=== PATIENT | female | born 1950 | race Caucasian/White ===

== ENCOUNTER 2023-12-25 11:47 | Inpatient (IN) | payer OTHER, BC ==
[~2023-12-25] VITALS: Ht 167.6 cm; Wt 86.6 kg
[2023-12-25 12:05] VITALS: BP 172/78; PULSE 69; RESP 15; TEMP 98.1; O2SAT 93
[2023-12-25 12:47] LABS: BASOPHILS % (AUTO) 0.1 % (0.0-2.0); EOSINOPHILS # (AUTO) 0.2 K/uL (0-0.4); EOSINOPHILS % (AUTO) 1.6 % (0.0-4.0); HEMATOCRIT 41.4 % (36-48); HEMOGLOBIN 14.1 g/dL (12.0-16.0); LYMPHOCYTES # (AUTO) 2.2 K/uL (2.5-16.5); MEAN CORPUSCULAR HEMOGLOBIN 30 pg (27-31); MEAN CORPUSCULAR HGB CONC 34 g/dL (33-37); MEAN CORPUSCULAR VOLUME 87.7 fL (80-94); MONOCYTES # (AUTO) 0.8 K/uL (0.8-1.0); MONOCYTES % (AUTO) 6.9 % (1.7-9.3); NEUTROPHILS # (AUTO) 8.5 K/uL (1.8-7.7); NEUTROPHILS % (AUTO) 72.4 % (42.2-75.2); PLATELET COUNT (AUTO) 356 K/uL (140-450); RED BLOOD CELL COUNT(AUTO) 4.72 MIL/uL (4.20-5.40); RED CELL DISTRIBUTION WIDTH 13.9 % (11.6-13.7); WHITE BLOOD COUNT (AUTO) 11.7 K/uL (4.8-10.8)
[2023-12-25] MEDS ORDERED: cefTRIAXone 1,000 MG VIAL ONE (13:10)
[2023-12-25 13:13] LABS: ALANINE AMINOTRANSFERASE 10 U/L (12-78); ALBUMIN 3.5 g/dL (3.4-5.0); ALKALINE PHOSPHATASE 77 U/L (50-136); ASPARTATE AMINOTRANSFERASE 13 U/L (15-37); BILIRUBIN,DIRECT 0.1 mg/dL (0.0-0.3); FLU A ANTIGEN negative (NEGATIVE); FLU B ANTIGEN NEGATIVE (NEGATIVE); TOTAL BILIRUBIN 0.6 mg/dL (0.0-1.0); TOTAL PROTEIN, SERUM 7.8 g/dL (6.4-8.2)
[2023-12-25 13:14] LABS: ANION GAP 11.2 (8-16); CALCIUM 9.3 mg/dL (8.5-10.1); CARBON DIOXIDE 30.3 mmol/L (21-32); CHLORIDE 102 mmol/L (98-107); CREATININE 0.7 mg/dL (0.6-1.3); GLUCOSE 179 mg/dL (74-106); POTASSIUM 3.5 mmol/L (3.5-5.1); SODIUM SERUM 140 mmol/L (136-145); UREA NITROGEN, BLOOD 18 mg/dL (7-18)
[2023-12-25] MEDS ORDERED: AZITHROMYCIN 500 MG INJ VIAL IV ONE (13:45)
[2023-12-25] MEDS: AZITHROMYCIN 500 MG in DEXTROSE 5% 250 ML IV ONE (13:52)
[2023-12-25] MEDS ORDERED: METF-1139 PO (15:42)
[2023-12-25] MEDS ORDERED: OLME-4 PO (15:55)
[2023-12-25] MEDS ORDERED: ALBUTEROL 0.083% 2.5 MG/3 ML NEBU INH PRN (16:10)
[2023-12-25] MEDS ORDERED: IPRATROPIUM 0.02% 0.5 MG/2.5 ML NEBU INH PRN (16:10)
[2023-12-25] MEDS ORDERED: DEXTROSE 50% 50 ML SYR IVP PRN (16:10)
[2023-12-25] MEDS ORDERED: ONDANSETRON 4 MG/2 ML VIAL IVP PRN (16:10)
[2023-12-25] MEDS ORDERED: ACETAMINOPHEN 325 MG TAB PO PRN ×2 (16:10)
[2023-12-25] MEDS: BLOOD GLUCOSE MONITORING 1 DEV DEV FS SCH (16:56)
[2023-12-25] MEDS: ALBUTEROL SULFATE/IPRATROPIU 3 ML SOL IH SCH (19:14)
[2023-12-25 19:15] VITALS: PULSE 76; RESP 18; O2SAT 96
[2023-12-25 19:33] VITALS: O2SAT 96
[2023-12-25 21:35] VITALS: BP 140/78; PULSE 76; RESP 18; TEMP 97.6; O2SAT 92; O2SAT 96
[2023-12-25 22:01] VITALS: PULSE 75
[2023-12-25] MEDS: INSULIN LISPRO SLIDING SCALE 100 UNITS/ML VIAL SUBQ PRN (22:27)
[2023-12-26] VITALS (11 sets, daily range): BP systolic 135–153; BP diastolic 57–79; PULSE 58–79; RESP 17–20; TEMP 97.5–98.2; O2SAT 92–98
[2023-12-26] MEDS ORDERED: OLMESARTAN PO SCH (09:00)
[2023-12-26] MEDS ORDERED: [UNRECOGNIZED DRUG - OTHER] PO SCH (09:00)
[2023-12-26] MEDS ORDERED: AMLODIPIN PO SCH (09:00)
[2023-12-26] MEDS ORDERED: HCTHIAZID PO SCH (09:00)
[2023-12-26] MEDS: amLODIPine 5 MG TAB PO SCH (09:59)
[2023-12-26] MEDS: hydroCHLOROthiazide 25 MG TAB PO SCH (10:00)
[2023-12-26] MEDS: LOSARTAN 50 MG TAB PO SCH (10:00)
[2023-12-26] MEDS: ENOXAPARIN 40 MG/0.4 ML SYR SUBQ SCH (10:01)
[2023-12-26] MEDS: AZITHROMYCIN 500 MG in DEXTROSE 5% 250 ML IV SCH (13:42)
[2023-12-27] VITALS (13 sets, daily range): BP systolic 122–156; BP diastolic 62–75; PULSE 62–93; RESP 16–18; TEMP 97.3–99.2; O2SAT 94–98
[2023-12-27 13:24] LABS: BASOPHILS % (AUTO) 0.4 % (0.0-2.0); EOSINOPHILS # (AUTO) 0.2 K/uL (0-0.4); EOSINOPHILS % (AUTO) 1.8 % (0.0-4.0); HEMATOCRIT 41.2 % (36-48); HEMOGLOBIN 13.9 g/dL (12.0-16.0); LYMPHOCYTES % (AUTO) 23.3 % (20.5-51.1); MEAN CORPUSCULAR HEMOGLOBIN 30 pg (27-31); MEAN CORPUSCULAR HGB CONC 34 g/dL (33-37); MEAN CORPUSCULAR VOLUME 88.6 fL (80-94); MONOCYTES # (AUTO) 0.7 K/uL (0.8-1.0); MONOCYTES % (AUTO) 8.2 % (1.7-9.3); NEUTROPHILS # (AUTO) 5.7 K/uL (1.8-7.7); NEUTROPHILS % (AUTO) 66.3 % (42.2-75.2); PLATELET COUNT (AUTO) 307 K/uL (140-450); RED BLOOD CELL COUNT(AUTO) 4.65 MIL/uL (4.20-5.40); RED CELL DISTRIBUTION WIDTH 14.5 % (11.6-13.7); WHITE BLOOD COUNT (AUTO) 8.7 K/uL (4.8-10.8)
[2023-12-27 13:44] LABS: ALANINE AMINOTRANSFERASE 12 U/L (12-78); ALBUMIN 2.9 g/dL (3.4-5.0); ALKALINE PHOSPHATASE 67 U/L (50-136); ANION GAP 13.5 (8-16); ASPARTATE AMINOTRANSFERASE 12 U/L (15-37); CALCIUM 8.9 mg/dL (8.5-10.1); CARBON DIOXIDE 27.2 mmol/L (21-32); CHLORIDE 98 mmol/L (98-107); CREATININE 0.8 mg/dL (0.6-1.3); GLUCOSE 368 mg/dL (74-106); POTASSIUM 3.7 mmol/L (3.5-5.1); SODIUM SERUM 135 mmol/L (136-145); TOTAL BILIRUBIN 0.6 mg/dL (0.0-1.0); TOTAL PROTEIN, SERUM 6.8 g/dL (6.4-8.2); UREA NITROGEN, BLOOD 14 mg/dL (7-18)
[2023-12-28] VITALS (13 sets, daily range): BP systolic 123–164; BP diastolic 55–78; PULSE 70–105; RESP 16–20; TEMP 97–98.8; O2SAT 94–99
[2023-12-28 06:17] LABS: BASOPHILS % (AUTO) 0.1 % (0.0-2.0); EOSINOPHILS # (AUTO) 0.2 K/uL (0-0.4); EOSINOPHILS % (AUTO) 2.1 % (0.0-4.0); HEMOGLOBIN 13.7 g/dL (12.0-16.0); LYMPHOCYTES # (AUTO) 2.6 K/uL (2.5-16.5); LYMPHOCYTES % (AUTO) 27.2 % (20.5-51.1); MEAN CORPUSCULAR HEMOGLOBIN 30 pg (27-31); MEAN CORPUSCULAR HGB CONC 34 g/dL (33-37); MEAN CORPUSCULAR VOLUME 87.9 fL (80-94); MONOCYTES # (AUTO) 1.1 K/uL (0.8-1.0); MONOCYTES % (AUTO) 11.5 % (1.7-9.3); NEUTROPHILS # (AUTO) 5.7 K/uL (1.8-7.7); NEUTROPHILS % (AUTO) 59.1 % (42.2-75.2); PLATELET COUNT (AUTO) 322 K/uL (140-450); RED BLOOD CELL COUNT(AUTO) 4.56 MIL/uL (4.20-5.40); RED CELL DISTRIBUTION WIDTH 14.1 % (11.6-13.7); WHITE BLOOD COUNT (AUTO) 9.6 K/uL (4.8-10.8)
[2023-12-28 06:38] LABS: CALCIUM 8.9 mg/dL (8.5-10.1); CARBON DIOXIDE 26.2 mmol/L (21-32); CHLORIDE 102 mmol/L (98-107); CREATININE 0.6 mg/dL (0.6-1.3); GLUCOSE 204 mg/dL (74-106); POTASSIUM 3.2 mmol/L (3.5-5.1); SODIUM SERUM 139 mmol/L (136-145); UREA NITROGEN, BLOOD 11 mg/dL (7-18)
[2023-12-28 06:39] LABS: MAGNESIUM 1.7 mg/dL (1.8-2.4); PHOSPHORUS 4.3 mg/dL (2.5-4.9)
[2023-12-28] MEDS: MAGNESIUM OXIDE 400 MG TAB PO SCH (12:57)
[2023-12-28] MEDS: POTASSIUM CHLORIDE 10 MEQ TABER PO SCH (12:57)
[2023-12-28] MEDS ORDERED: PRON INH (18:10)
[2023-12-28] MEDS ORDERED: AMLO-3 PO (18:10)
[2023-12-28] MEDS ORDERED: DOXY-487 PO (18:10)
[2023-12-29] VITALS (9 sets, daily range): BP systolic 150–164; BP diastolic 73–79; PULSE 77–90; RESP 18–20; TEMP 97.1–97.8; O2SAT 95–98
[2023-12-29 05:57] LABS: BASOPHILS % (AUTO) 0.2 % (0.0-2.0); EOSINOPHILS # (AUTO) 0.1 K/uL (0-0.4); EOSINOPHILS % (AUTO) 1.2 % (0.0-4.0); HEMATOCRIT 41.4 % (36-48); HEMOGLOBIN 14.2 g/dL (12.0-16.0); LYMPHOCYTES # (AUTO) 2.2 K/uL (2.5-16.5); LYMPHOCYTES % (AUTO) 23.3 % (20.5-51.1); MEAN CORPUSCULAR HEMOGLOBIN 30 pg (27-31); MEAN CORPUSCULAR HGB CONC 34 g/dL (33-37); MEAN CORPUSCULAR VOLUME 87.7 fL (80-94); MONOCYTES # (AUTO) 1.2 K/uL (0.8-1.0); MONOCYTES % (AUTO) 12.6 % (1.7-9.3); NEUTROPHILS # (AUTO) 5.8 K/uL (1.8-7.7); NEUTROPHILS % (AUTO) 62.7 % (42.2-75.2); PLATELET COUNT (AUTO) 314 K/uL (140-450); RED BLOOD CELL COUNT(AUTO) 4.72 MIL/uL (4.20-5.40); RED CELL DISTRIBUTION WIDTH 14.4 % (11.6-13.7); WHITE BLOOD COUNT (AUTO) 9.2 K/uL (4.8-10.8)
[2023-12-29 07:09] LABS: MAGNESIUM 1.8 mg/dL (1.8-2.4); PHOSPHORUS 4.5 mg/dL (2.5-4.9)
[2023-12-29 07:18] LABS: ANION GAP 13.1 (8-16); CALCIUM 9.4 mg/dL (8.5-10.1); CARBON DIOXIDE 27.5 mmol/L (21-32); CHLORIDE 102 mmol/L (98-107); CREATININE 0.7 mg/dL (0.6-1.3); GLUCOSE 214 mg/dL (74-106); POTASSIUM 3.6 mmol/L (3.5-5.1); SODIUM SERUM 139 mmol/L (136-145); UREA NITROGEN, BLOOD 14 mg/dL (7-18)
== END 2023-12-29 12:15 | DRG 193 ==
LOC: MED 11:47 → MTU 16:08
PROVIDERS: ADMIT Hospitalist; ATTEND Hospitalist
DX: J15.9 Unspecified bacterial pneumonia (principal); J96.01 Acute respiratory failure with hypoxia; Z20.822 Contact with and (suspected) exposure to COVID-19; E11.40 Type 2 diabetes mellitus with diabetic neuropathy, unspecified; I10 Essential (primary) hypertension; E06.3 Autoimmune thyroiditis; J45.909 Unspecified asthma, uncomplicated; Z79.84 Long term (current) use of oral hypoglycemic drugs; Z79.899 Other long term (current) drug therapy; Z88.8 Allergy status to other drugs, medicaments and biological substances; Z90.49 Acquired absence of other specified parts of digestive tract; S86.002A Unspecified injury of left Achilles tendon, initial encounter; S93.324A Dislocation of tarsometatarsal joint of right foot, initial encounter
CPT/HCPCS: 36415; 71045; 71260; 73630; 80048; 80053; 80076; 82948; 83605; 83735; 84100; 84484; 85025; 87040; 87070; 87081; 87186; 87205; 94640; 96365; 96367; 97110; 97112; 97163-GP; 97530; 99285; J0456; J0696; J1650; J1815; J7060